=== PATIENT | male | born 2000 | race African-American/Black ===

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

== ENCOUNTER 2019-01-07 09:03 | Outpatient (REF) | payer BC, SELFPAY ==
[2019-01-08 14:49] LABS: Chlamydia Result Negative; GC Result Negative; Specimen Description URINE
== END 2019-01-07 09:23 ==
LOC: NCHCN 09:03
PROVIDERS: PCP Pediatrics; Visit Provider Nurse Practitioner Family
DX: Z11.3 Encounter for screening for infections with a predominantly sexual mode of transmission (principal)
CPT/HCPCS: 87491; 87591